=== PATIENT | female | born 1995 | race Caucasian/White ===

== ENCOUNTER 2022-07-29 17:33 | Emergency (ER) | payer SELFPAY ==
[~2022-07-29] VITALS: Ht 152.4 cm; Wt 63.0 kg
[2022-07-29] MEDS ORDERED: ONDANSETRON 4 MG/2 ML VIAL IV ONE ×2 (18:00→21:30)
[2022-07-29] MEDS ORDERED: IV NORMAL SALINE 1000 ML BAG IV ONE (18:00)
[2022-07-29] MEDS ORDERED: ONDANSETRON 4 MG/2 ML VIAL ONE ×2 (18:01→21:18)
[2022-07-29 18:10] LABS: HEMATOCRIT 44.3 % (31.2-41.9); MEAN CORPUSCULAR HEMOGLOBIN 29.7 uug (24.7-32.8); MEAN CORPUSCULAR VOLUME 86.5 fL (75.5-95.3); PLATELET COUNT (AUTO) 472 K/uL (179-408)
[2022-07-29 18:12] LABS: CREATININE 0.8 mg/dL (0.6-1.3); POTASSIUM 3.7 mmol/L (3.5-5.1)
[2022-07-29 18:18] LABS: BILIRUBIN,DIRECT 0.1 mg/dL (0.0-0.2); BILIRUBIN,TOTAL 0.4 mg/dL (0.2-1.0); TOTAL PROTEIN, SERUM 7.7 g/dL (6.4-8.2)
[2022-07-29] MEDS ORDERED: LORAZEPAM 2 MG/1 ML VIAL ONE (18:25)
[2022-07-29] MEDS ORDERED: LORAZEPAM 2 MG/1 ML VIAL IV ONE (18:30)
[2022-07-29] MEDS ORDERED: IV NS 1000 ML 1,000 ML IV ONE ×2 (18:45→20:15)
[2022-07-29 20:56] LABS: *BLOOD, URINE NEGATIVE (NEGATIVE); *COLOR,URINE YELLOW (YELLOW); *KETONES,URINE TRACE (NEGATIVE); *UROBILINOGEN,URINE 0.2 E.U./dl (NORMAL); LEUKOCYTE ESTERASE ,URINE TRACE (NEGATIVE); NITRITE, URINE NEGATIVE (NEGATIVE); UGLUCOSE NEGATIVE (NEGATIVE)
[2022-07-29 20:57] LABS: *BILIRUBIN,URIN 1+ (NEGATIVE); *CLARITY,URINE HAZY (CLEAR)
[2022-07-29 20:59] LABS: *URINE HCG, QUAL NEGATIVE (NEGATIVE); BACTERIA,URINE FEW /HPF (NONE SEEN); SQUAMOUS EPITHELIAL CELL,UR FEW /HPF (NONE SEEN)
[2022-07-29] MEDS ORDERED: DIPH1TAB PO (20:59)
[2022-07-29] MEDS ORDERED: ONDA4TAB5 PO (20:59)
[2022-07-29] MEDS ORDERED: HYDROMORPHONE 1 MG/1 ML DISP.SYRIN ONE (21:18)
[2022-07-29] MEDS ORDERED: HYDROMORPHONE 1 MG/1 ML DISP.SYRIN IV ONE (21:30)
[2022-07-29 21:54] VITALS: BP 98/62
== END 2022-07-29 21:54 | disposition home or self-care (01) ==
LOC: ER 18:06
DX: E86.0 Dehydration (principal); T50.905A Adverse effect of unspecified drugs, medicaments and biological substances, initial encounter; Z88.1 Allergy status to other antibiotic agents; Z79.899 Other long term (current) drug therapy; Y92.89 Other specified places as the place of occurrence of the external cause
CPT/HCPCS: 99284; 96374; 96361; 96375; 80076; 80048; 81001; 84703; 83690; 83735; 85025; 36415; 96376; J2060; J2405 ×2; J1170; J7040 ×3; A4663